=== PATIENT | female | born 1940 | race Caucasian/White ===

== ENCOUNTER 2018-03-12 08:41 | Day surgery (SDC) | payer MEDICARE ==
[~2018-03-12 08:41] MED LIST: Acetaminophen TAB* 325 MG PO PRN; Buffered Lidocaine 0.9% SYRIN* 5 ML/SYR SYRINGE INTRADERM ONE; Midazolam* 1 MG/ML 5 ML VIAL (5 MG) ONE; fentaNYL* 50 MCG/ML 2 ML VIAL (100 MCG VIAL) ONE
[2018-03-12 11:02] VITALS: BP 106/49
[2018-03-12] MEDS ORDERED: Neomycin/Polymy/Dex OPTH.SUSP* MAXITROL 0.1% 5 ML ONE (14:33)
[2018-03-12] MEDS ORDERED: Lidocaine 1%* 5 ML VIAL ONE (14:33)
[2018-03-12] MEDS ORDERED: acetaZOLAMIDE TAB* 250 MG ONE (14:33)
[2018-03-12] MEDS ORDERED: Phenylephrine 2.5% OPTH.SOL* 2 ML BTL ONE (14:33)
[2018-03-12] MEDS ORDERED: Lidocaine 2% EPI 1:200000 MPF*10-20 ML VIAL ONE (14:33)
[2018-03-12] MEDS ORDERED: Ketorolac 0.5% OPHTH (NF) 0.5 % 5 ML BTL ONE (14:33)
[2018-03-12] MEDS ORDERED: Povidone Iodine 5% OPTH* 30 ML BTL ONE (14:33)
[2018-03-12] MEDS ORDERED: Cyclopentolate 1% OPTH.SOL* 2 ML BTL ONE (14:33)
[2018-03-12] MEDS ORDERED: Proparacaine 0.5% OPHTH.SOL* 15 ML BTL ONE (14:34)
--- NOTE | 2018-03-12 21:00 | OP ---
OPERATIVE NOTE: DATE OF OPERATION: 03/12/18 - [facility] DATE OF : 38 SURGEON: Jules Mckinnon MD PRE-OP DIAGNOSIS: Cataract, left eye. POST-OP DIAGNOSIS: Cataract, left eye. OPERATIVE PROCEDURE: Extracapsular cataract extraction with IOL and CTR, left eye. 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 DESCRIPTION OF PROCEDURE: The patient was brought to the operating room after being given 1/2% Alcaine with epinephrine drops in the preoperative area. The eye was prepped and draped in the usual sterile fashion. Sterile drape and eyelid speculum were placed. Again, topical 1/2% Alcaine with epinephrine was given. A paracentesis incision was made at the 3 o'clock position with the No.75 blade. Clear cornea incision 2.2 x 2.2-mm was created at the 6 o'clock position starting at the anterior limbus using the 2.2-mm keratome. The anterior chamber was irrigated with 0.4 mL of 1% non-preservative intracameral lidocaine and filled with DisCoVisc. A capsulorrhexis was completed using the cystotome and the Utrata forceps. Hydrodissection was performed with balanced salt solution. The lens nucleus was removed with the Phacoemulsification handpiece without incident. Cortex was removed with the irrigation-aspiration handpiece. The capsular bag was re-inflated using DisCoVisc and an [id number] 22 implant was inserted with the shooter followed by an ACTR 11 capsular tension ring inserted with this shooter. Complex cataract surgery. The irrigation- aspiration handpiece was used to remove all residual DisCoVisc. The eye was refilled with balanced salt solution and the wound checked and found to be watertight. Topical Maxitrol drops were given. [id number]/[facility] #: [id number] MTDD
== END 2018-03-12 11:05 | disposition home or self-care (01) ==
LOC: OREAST 08:41
PROVIDERS: ATTEND Specialist
DX: H25.12 Age-related nuclear cataract, left eye (principal); H40.023 Open angle with borderline findings, high risk, bilateral; H53.021 Refractive amblyopia, right eye; I10 Essential (primary) hypertension; I47.1 Supraventricular tachycardia; I34.0 Nonrheumatic mitral (valve) insufficiency; R42 Dizziness and giddiness; R13.10 Dysphagia, unspecified
CPT/HCPCS: A9270-GY; J2250; J3010; V2632

== ENCOUNTER 2018-03-19 08:18 | Day surgery (SDC) | payer MEDICARE ==
[~2018-03-19 08:18] MED LIST changes: -Midazolam* 1 MG/ML 5 ML VIAL (5 MG) ONE; -fentaNYL* 50 MCG/ML 2 ML VIAL (100 MCG VIAL) ONE
[2018-03-19] MEDS ORDERED: Cyclopentolate 1% OPTH.SOL* 2 ML BTL ONE (09:30)
[2018-03-19] MEDS ORDERED: Phenylephrine 2.5% OPTH.SOL* 2 ML BTL ONE (09:30)
[2018-03-19] MEDS ORDERED: acetaZOLAMIDE TAB* 250 MG ONE (09:30)
[2018-03-19] MEDS ORDERED: Proparacaine 0.5% OPHTH.SOL* 15 ML BTL ONE (09:30)
[2018-03-19] MEDS ORDERED: Lidocaine 1%* 5 ML VIAL ONE (09:30)
[2018-03-19] MEDS ORDERED: Neomycin/Polymy/Dex OPTH.SUSP* MAXITROL 0.1% 5 ML ONE (09:30)
[2018-03-19] MEDS ORDERED: Ketorolac 0.5% OPHTH (NF) 0.5 % 5 ML BTL ONE (09:30)
[2018-03-19] MEDS ORDERED: Lidocaine 2% EPI 1:200000 MPF*10-20 ML VIAL ONE (09:30)
[2018-03-19] MEDS ORDERED: Povidone Iodine 5% OPTH* 30 ML BTL ONE (09:30)
[2018-03-19] MEDS ORDERED: Midazolam* 1 MG/ML 5 ML VIAL (5 MG) ONE (09:40)
[2018-03-19 10:33] VITALS: BP 120/65
--- NOTE | 2018-03-19 11:02 | OP ---
DATE OF OPERATION: 03/19/2018. DATE OF : 1940. SURGEON: Jules Mckinnon M.D. PREOPERATIVE DIAGNOSIS: Cataract right eye. POSTOPERATIVE DIAGNOSIS: Cataract right eye. OPERATIVE PROCEDURE: Extracapsular cataract extraction with intraocular lens implant and CTR right e ye. PROCEDURE: The patient was brought to the operating room after being given 1/2% Alcaine with epineph rine drops in the preoperative area. The eye was prepped and draped in the usual sterile fashion. S terile drape and eyelid speculum were placed. Again, topical 1/2% Alcaine with epinephrine was given . A paracentesis incision was made at the 9 o'clock position with the No.75 blade. Clear cornea inc ision 2.2 x 2.2-mm was created at the 12 o'clock position starting at the anterior limbus using the 2 .2-mm keratome. The anterior chamber was irrigated with 0.4 mL of 1% non-preservative intracameral l idocaine and filled with DisCoVisc. A capsulorrhexis was completed using the cystotome and the Utrat a forceps. Hydrodissection was performed with balanced salt solution. The lens nucleus was removed w ith the Phacoemulsification handpiece without incident. Cortex was removed with the irrigation-aspir ation handpiece. The capsular bag was re-inflated using DisCoVisc and an SN60WF 23.5 implant was ins erted with the shooter, followed by a capsular tension ring ACTR10 inserted with its shooter. The ir rigation- aspiration handpiece was used to remove all residual DisCoVisc. The eye was refilled with balanced salt solution and the wound checked and found to be watertight. Topical Maxitrol drops were given. Indication for complex cataract surgery: Pseudoexfoliation requiring capsular tension device. [id number]/[facility] #: [id number]
== END 2018-03-19 10:40 | disposition home or self-care (01) ==
LOC: OREAST 08:18
PROVIDERS: ATTEND Specialist
DX: H25.11 Age-related nuclear cataract, right eye (principal); H21.562 Pupillary abnormality, left eye; H40.023 Open angle with borderline findings, high risk, bilateral; H53.021 Refractive amblyopia, right eye; I47.1 Supraventricular tachycardia; I10 Essential (primary) hypertension; I34.0 Nonrheumatic mitral (valve) insufficiency; M19.90 Unspecified osteoarthritis, unspecified site; R42 Dizziness and giddiness
CPT/HCPCS: A9270-GY; J2250; V2632